=== PATIENT | female | born 1960 | race Caucasian/White ===

== ENCOUNTER 2023-06-23 15:48 | Emergency (ER) | payer MEDICAID ==
[~2023-06-23] VITALS: Ht 162.6 cm; Wt 63.5 kg
[2023-06-23] MEDS ORDERED: METOCLOPRAMIDE HCL 10 MG/2 ML VIAL IV ONE (16:00)
[2023-06-23] MEDS ORDERED: KETOROLAC TROMETHAMINE INJ 30 MG/ML VIAL IV ONE (16:00)
[2023-06-23] MEDS ORDERED: IV NS 0.9% 1,000 ML IV ONE (16:00)
[2023-06-23] MEDS ORDERED: diphenhydrAMINE HCL 50 MG/ML VIAL IV ONE (16:00)
[2023-06-23] MEDS ORDERED: SUMATRIPTAN SUCCINATE 6 MG/0.5 ML VIAL SQ ONE ×2 (16:00→16:14)
[2023-06-23] MEDS ORDERED: KETOROLAC TROMETHAMINE INJ 30 MG/ML VIAL ONE (16:14)
[2023-06-23] MEDS ORDERED: diphenhydrAMINE HCL 50 MG/ML VIAL ONE (16:14)
[2023-06-23] MEDS ORDERED: METOCLOPRAMIDE HCL 10 MG/2 ML VIAL ONE (16:14)
[2023-06-23] MEDS ORDERED: METO-295 PO (17:30)
[2023-06-23] MEDS ORDERED: SUMA50TA PO (17:30)
[2023-06-23] MEDS ORDERED: KETO10TA2 PO (17:30)
[2023-06-23 18:01] VITALS: BP 128/70; TEMP 98.3; O2SAT 98
== END 2023-06-23 18:01 | disposition home or self-care (01) ==
LOC: ER 16:55
DX: R51.9 Headache, unspecified (principal); Z88.8 Allergy status to other drugs, medicaments and biological substances
CPT/HCPCS: 99285; 96374; 70450; 96375; 96361; 96372; J1200; J3030; J2765; J1885; J7030